=== PATIENT | female | born 1945 | race Two or more races ===

== ENCOUNTER → 2024-07-18 | Outpatient (CLI) | payer OTHER, MEDICAID, SELFPAY ==
[2024-07-18 08:35] LABS: Basophils % (Auto) 1 % (0-2.5); Eosinophils # (Auto) 0.1 Thou/mm3 (0.0-0.5); Eosinophils % (Auto) 3 % (0-10); Hematocrit 37.1 % (36.0-46.0); Hemoglobin 12.1 g/dL (12.0-16.0); Immature Granulocytes % (Auto) 0 % (0-0); Immature Granulocytes Auto 0.01 Thou/mm3 (0.00-0.00); Lymphocytes # (Auto) 1.3 Thou/mm3 (1.0-4.8); Lymphocytes % (Auto) 33 % (10-50); Mean Corpuscular HGB Conc 32.6 g/dl (31.0-37.0); Mean Corpuscular Hemoglobin 32.4 pg (25.0-35.0); Mean Corpuscular Volume 100 fL (80-100); Monocytes # (Auto) 0.3 Thou/mm3 (0.0-0.8); Monocytes % (Auto) 8 % (0-12); Neutrophils # (Auto) 2.2 Thou/mm3 (1.8-7.7); Neutrophils % (Auto) 56 % (37-80); Nucleated Red Blood Cell % 0 /100 WBC (0); Platelet Count 211 Thou/mm3 (140-440); RDW Standard Deviation 52.1 fL (36.4-46.3); Red Blood Count 3.73 Miln/mm3 (4.00-5.20); White Blood Count 3.9 Thou/mm3 (3.6-11.0)
[2024-07-18 09:02] LABS: Alanine Aminotransferase 12 U/L (10-49); Albumin, Serum 4.5 gm/dL (3.4-4.8); Alkaline Phosphatase 45 U/L (46-116); Anion Gap 5 (7-16); Aspartate Amino Transferase < 8 U/L (0-34); BUN/Creatinine Ratio 16 Ratio (12-20); Bilirubin,Direct 0.4 mg/dL (0.0-0.3); Bilirubin,Total 1.2 mg/dL (0.3-1.2); Blood Urea Nitrogen 13 mg/dL (9-23); Calcium 10.9 mg/dL (8.3-10.6); Carbon Dioxide 27.7 mMol/L (20.0-31.0); Cardiac Risk Estimate 2.8 RATIO (3.7-5.6); Chloride 107 mMol/L (98-107); Cholesterol 175 mg/dL (132-200); Creatinine (Component) 0.8 mg/dL (0.6-1.3); Free T4 (Free Thyroxine) 1.12 ng/dL (0.89-1.76); Glucose 130 mg/dL (74-106); HDL Cholesterol 62 mg/dL (40-60); LDL Cholesterol,Calculated 98 mg/dL (0-130); Osmolality,Calculated 281 (275-295); Potassium 4.3 mMol/L (3.4-5.1); Sodium 140 mMol/L (136-145); Thyroid Stimulating Hormone 3.58 uIU/mL (0.55-4.78); Total Protein 7.3 gm/dL (5.7-8.2); Triglycerides 74 mg/dL (30-150); eGFR > 60 See Note
== END | disposition home or self-care (01) ==
PROVIDERS: PCP Internal Medicine; Referring Provider Internal Medicine Cardiovascular Disease; Visit Provider Internal Medicine Cardiovascular Disease
DX: I10 Essential (primary) hypertension (principal); E78.2 Mixed hyperlipidemia; I49.9 Cardiac arrhythmia, unspecified; I20.9 Angina pectoris, unspecified
CPT/HCPCS: 36415; 80048; 80061; 80076; 84439; 84443; 85025

== ENCOUNTER → 2024-08-08 | Outpatient (CLI) | payer OTHER, MEDICAID, SELFPAY ==
[2024-08-08 11:42] LABS: Collection Type, Urine Clean Catch
[2024-08-08 11:58] LABS: Basophils % (Auto) 0 % (0-2.5); Eosinophils # (Auto) 0.1 Thou/mm3 (0.0-0.5); Eosinophils % (Auto) 2 % (0-10); Hematocrit 35.8 % (36.0-46.0); Hemoglobin 11.8 g/dL (12.0-16.0); Immature Granulocytes % (Auto) 0 % (0-0); Immature Granulocytes Auto 0.01 Thou/mm3 (0.00-0.00); Lymphocytes # (Auto) 1.4 Thou/mm3 (1.0-4.8); Lymphocytes % (Auto) 31 % (10-50); Mean Corpuscular Hemoglobin 32.3 pg (25.0-35.0); Mean Corpuscular Volume 98 fL (80-100); Monocytes # (Auto) 0.4 Thou/mm3 (0.0-0.8); Monocytes % (Auto) 8 % (0-12); Neutrophils # (Auto) 2.6 Thou/mm3 (1.8-7.7); Neutrophils % (Auto) 58 % (37-80); Nucleated Red Blood Cell % 0 /100 WBC (0); Platelet Count 196 Thou/mm3 (140-440); RDW Standard Deviation 51.6 fL (36.4-46.3); Red Blood Count 3.65 Miln/mm3 (4.00-5.20); White Blood Count 4.4 Thou/mm3 (3.6-11.0)
[2024-08-08 12:02] LABS: Bilirubin,Urine Negative (Negative); Blood,Urine Negative (Negative); Clarity,Urine Clear (Clear/Hazy); Color,Urine Lt-Yellow (Lt Yel-Yel); Glucose, Urine Negative (Negative); Ketones,Urine Negative (Negative); Leukocyte Esterase,Urine Negative (Negative); Nitrite,Urine Negative (Negative); Protein,Urine Negative (Neg - Trace); RBC,Urine 1 /hpf (0-3); Specific Gravity,Urine 1.014 (1.001-1.035); Squamous Epithelial Cell,Urine 5 /hpf (0-5); Urobilinogen,Urine Negative mg/dL (0.0-1.0); WBC,Urine 5 /hpf (0-5)
[2024-08-08 12:19] LABS: Alanine Aminotransferase 22 U/L (10-49); Albumin, Serum 4.8 gm/dL (3.4-4.8); Albumin/Globulin Ratio 1.7 (1.2-2.2); Alkaline Phosphatase 42 U/L (46-116); Anion Gap 6 (7-16); Aspartate Amino Transferase 26 U/L (0-34); BUN/Creatinine Ratio 19 Ratio (12-20); Blood Urea Nitrogen 15 mg/dL (9-23); Calcium 10.8 mg/dL (8.3-10.6); Calcium (Corrected) 10.8 mg/dL (8.5-10.1); Carbon Dioxide 26.3 mMol/L (20.0-31.0); Chloride 108 mMol/L (98-107); Creatinine (Component) 0.8 mg/dL (0.6-1.3); Globulin 2.9 gm/dL (2.3-3.5); Glucose 113 mg/dL (74-106); Osmolality,Calculated 281 (275-295); Potassium 4.1 mMol/L (3.4-5.1); Sodium 140 mMol/L (136-145); Thyroid Stimulating Hormone 2.68 uIU/mL (0.55-4.78); Total Protein 7.7 gm/dL (5.7-8.2); eGFR > 60 See Note
[2024-08-08 14:35] LABS: Bilirubin,Total 0.9 mg/dL (0.3-1.2); Cholesterol 163 mg/dL (132-200); HDL Cholesterol 54 mg/dL (40-60); LDL Cholesterol,Calculated 90 mg/dL (0-130); Triglycerides 94 mg/dL (30-150)
[2024-08-08 15:28] LABS: Parathyroid Hormone Intact 133.7 pg/ml (18.5-88.0)
[2024-08-08 15:44] LABS: Vitamin D 25 Hydroxy Total 42.1 ng/mL (7.3-40.2)
[2024-08-08 16:05] LABS: Glucose Estimated Average 128 mg/dL (80-131); Hemoglobin A1C 6.1 % Hgb (4.8-6.0)
== END | disposition home or self-care (01) ==
PROVIDERS: PCP Internal Medicine; Referring Provider Internal Medicine; Visit Provider Specialist
DX: E11.9 Type 2 diabetes mellitus without complications (principal); I10 Essential (primary) hypertension; E78.5 Hyperlipidemia, unspecified; E83.52 Hypercalcemia
CPT/HCPCS: 36415; 80053; 80061; 81001; 82306; 83036; 83970; 84443; 85025

== ENCOUNTER → 2024-10-06 | Outpatient (CLI) | payer MEDICARE, MEDICAID, SELFPAY ==
[2024-10-06 08:27] LABS: Anion Gap 6 (7-16); BUN/Creatinine Ratio 16 Ratio (12-20); Blood Urea Nitrogen 13 mg/dL (9-23); Calcium 10.2 mg/dL (8.3-10.6); Carbon Dioxide 28.8 mMol/L (20.0-31.0); Chloride 109 mMol/L (98-107); Creatinine (Component) 0.8 mg/dL (0.6-1.3); Glucose 118 mg/dL (74-106); Osmolality,Calculated 287 (275-295); Potassium 4.4 mMol/L (3.4-5.1); Sodium 144 mMol/L (136-145); eGFR > 60 See Note
[2024-10-06 08:32] LABS: B-Type Natriuretic Peptide 259 pg/mL (0-100)
== END | disposition home or self-care (01) ==
LOC: COPL 07:09
PROVIDERS: PCP Internal Medicine; Referring Provider Internal Medicine Cardiovascular Disease; Visit Provider Internal Medicine Cardiovascular Disease
DX: I11.0 Hypertensive heart disease with heart failure (principal); I50.9 Heart failure, unspecified; E78.2 Mixed hyperlipidemia
CPT/HCPCS: 36415; 80048; 83880

== ENCOUNTER 2024-10-13 06:34 | Day surgery (SDC) | payer OTHER, MEDICAID, SELFPAY ==
--- NOTE | 2024-10-10 13:39 | EKG_ITS ---
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
[2024-10-13] VITALS (9 sets, daily range): BP systolic 123–163; BP diastolic 61–87; PULSE 61–70; RESP 16; O2SAT 95–100; BMI 28.2
[2024-10-13] MEDS: SODIUM CHLORIDE 0.9% 500 ML 500 ML 30 ML IV (07:47)
[2024-10-13] MEDS: fentaNYL CIT INJ 50 mCg/ML AMP 2ML IV (07:55)
[2024-10-13] MEDS: MIDAZOLAM INJ 1 MG/ML VIAL 2 ML 2 MG IV (07:55)
--- NOTE | 2024-10-13 08:01 | EKG_ITS ---
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
--- NOTE | 2024-10-13 09:43 | ESOP_ITS ---
RE: CUATE TURPIN : 1945 DATE OF OPERATION: 10/13/2024 REFERRING PHYSICIAN: Fannie Ross MD PROCEDURE PERFORMED: Electrical cardioversion of atrial fibrillation. INDICATIONS FOR PROCEDURE: The patient with a history of chronic hypertension, recently was noted to be in atrial fibrillation. The patient has been on anticoagulant therapy as well as antiarrhythmic therapy of beta blockers and amiodarone and still continue to persist in atrial fibrillation. The cardiac echo Doppler study showed normal left ventricular systolic function and normal size left atrium. DETAILS OF THE PROCEDURE: After explaining the procedure in detail to the patient and after obtaining a proper consent, the patient was given a total of 2 mg of intravenous Versed and 50 mcg of intravenous fentanyl as premedication. Electrical cardioversion was attempted using anterior-posterior approach and biphasic waveform with 200 joules and the patient did convert back into sinus rhythm at a rate of 60 beats per minute. Post electrical cardioversion electrocardiogram was ordered, which showed sinus rhythm at 60 per minute with incomplete right bundle-branch block pattern and minimal nonspecific ST-T changes. DT: 08:12:10 TT: 09:41:00 Ref: [id number] - TID: [id number]
== END 2024-10-13 09:45 | disposition home or self-care (01) ==
PROVIDERS: PCP Internal Medicine; Referring Provider Internal Medicine Cardiovascular Disease; Visit Provider Internal Medicine Cardiovascular Disease
PROC: 5A2204Z Restoration of Cardiac Rhythm, Single (ICD-10-PCS; CPT 92960; principal; 2024-10-13 07:30)
DX: I48.91 Unspecified atrial fibrillation (principal); I10 Essential (primary) hypertension; E78.5 Hyperlipidemia, unspecified; E13.9 Other specified diabetes mellitus without complications; Z01.810 Encounter for preprocedural cardiovascular examination
CPT/HCPCS: 92960; 80048; 85025; 85610; 85730; 93005; J2250; J3010; J7040

== ENCOUNTER → 2024-12-03 | Outpatient (CLI) | payer MEDICARE, MEDICAID, SELFPAY ==
[2024-12-03 08:08] LABS: Collection Type, Urine Clean Catch
[2024-12-03 08:29] LABS: Basophils % (Auto) 0 % (0-2.5); Eosinophils # (Auto) 0.1 Thou/mm3 (0.0-0.5); Eosinophils % (Auto) 3 % (0-10); Hematocrit 32.9 % (36.0-46.0); Hemoglobin 10.5 g/dL (12.0-16.0); Immature Granulocytes % (Auto) 0 % (0-0); Immature Granulocytes Auto 0.01 Thou/mm3 (0.00-0.00); Lymphocytes # (Auto) 1.3 Thou/mm3 (1.0-4.8); Lymphocytes % (Auto) 33 % (10-50); Mean Corpuscular HGB Conc 31.9 g/dl (31.0-37.0); Mean Corpuscular Hemoglobin 32.1 pg (25.0-35.0); Mean Corpuscular Volume 101 fL (80-100); Monocytes # (Auto) 0.3 Thou/mm3 (0.0-0.8); Monocytes % (Auto) 8 % (0-12); Neutrophils # (Auto) 2.1 Thou/mm3 (1.8-7.7); Neutrophils % (Auto) 55 % (37-80); Nucleated Red Blood Cell % 0 /100 WBC (0); Platelet Count 183 Thou/mm3 (140-440); RDW Standard Deviation 57.1 fL (36.4-46.3); Red Blood Count 3.27 Miln/mm3 (4.00-5.20); White Blood Count 3.8 Thou/mm3 (3.6-11.0)
[2024-12-03 08:32] LABS: Bilirubin,Urine Negative (Negative); Blood,Urine Negative (Negative); Clarity,Urine Clear (Clear/Hazy); Color,Urine Lt-Yellow (Lt Yel-Yel); Glucose, Urine Negative (Negative); Hyaline Casts,Urine < 1 /hpf (0-1); Ketones,Urine Negative (Negative); Leukocyte Esterase,Urine Positive (Negative); Nitrite,Urine Negative (Negative); Protein,Urine Negative (Neg - Trace); RBC,Urine 1 /hpf (0-3); Squamous Epithelial Cell,Urine 2 /hpf (0-5); Urobilinogen,Urine Negative mg/dL (0.0-1.0); WBC,Urine 1 /hpf (0-5)
[2024-12-03 08:38] LABS: Glucose Estimated Average 120 mg/dL (80-131); Hemoglobin A1C 5.8 % Hgb (4.8-6.0)
[2024-12-03 08:39] LABS: Creatinine MALB Rnd Ur 100 mg/dL (30-125); Microalbumin Creat Ratio 6 mg/gCrea (<30); Microalbumin, Random Urine 6 mg/L (0-300)
[2024-12-03 08:57] LABS: Vitamin D 25 Hydroxy Total 35.1 ng/mL (7.3-40.2)
[2024-12-03 09:02] LABS: Parathyroid Hormone Intact 45.6 pg/ml (18.5-88.0)
[2024-12-03 09:05] LABS: Alanine Aminotransferase 12 U/L (10-49); Albumin, Serum 4.5 gm/dL (3.4-4.8); Albumin/Globulin Ratio 1.8 (1.2-2.2); Alkaline Phosphatase 41 U/L (46-116); Anion Gap 6 (7-16); Aspartate Amino Transferase 20 U/L (0-34); BUN/Creatinine Ratio 18 Ratio (12-20); Bilirubin,Total 0.9 mg/dL (0.3-1.2); Blood Urea Nitrogen 18 mg/dL (9-23); Calcium 10.8 mg/dL (8.3-10.6); Calcium (Corrected) 10.8 mg/dL (8.5-10.1); Carbon Dioxide 30.9 mMol/L (20.0-31.0); Cardiac Risk Estimate 2.4 RATIO (3.7-5.6); Chloride 104 mMol/L (98-107); Cholesterol 156 mg/dL (132-200); Globulin 2.5 gm/dL (2.3-3.5); Glucose 106 mg/dL (74-106); HDL Cholesterol 65 mg/dL (40-60); LDL Cholesterol,Calculated 75 mg/dL (0-130); Osmolality,Calculated 283 (275-295); Potassium 4.3 mMol/L (3.4-5.1); Sodium 141 mMol/L (136-145); Thyroid Stimulating Hormone 8.64 uIU/mL (0.55-4.78); Triglycerides 79 mg/dL (30-150); eGFR 58 See Note
== END | disposition home or self-care (01) ==
PROVIDERS: PCP Specialist; Referring Provider Internal Medicine; Visit Provider Internal Medicine
DX: E11.9 Type 2 diabetes mellitus without complications (principal); E78.5 Hyperlipidemia, unspecified; E83.52 Hypercalcemia; I10 Essential (primary) hypertension
CPT/HCPCS: 36415; 80053; 80061; 81001; 82043; 82306; 82570; 83036; 83970; 84443; 85025

== ENCOUNTER → 2024-12-09 | Outpatient (CLI) | payer MEDICARE, MEDICAID, SELFPAY ==
[2024-12-09 13:20] LABS: Vitamin B12 331 pg/mL (211-911)
[2024-12-09 15:56] LABS: Calcium, Random Urine 5 mg/dL (2-18); Creatinine,Random Urine 56 mg/dL (30-125)
[2024-12-09 20:46] LABS: Free T4 (Free Thyroxine) 1.32 ng/dL (0.89-1.76); Thyroid Stimulating Hormone 5.13 uIU/mL (0.55-4.78)
[2024-12-13 13:50] LABS: Albumin 4.5 g/dL (3.8-4.8); Alpha-1-Globulin 0.3 g/dL (0.2-0.3); Alpha-2-Globulin 0.8 g/dL (0.5-0.9); Beta-1-Globulin 0.4 g/dL (0.4-0.6); Beta-2-globulin 0.3 g/dL (0.2-0.5); Gamma Globulin 1.2 g/dL (0.8-1.7)
[2024-12-15 07:04] LABS: Protein, total, serum 7.6 g/dL (6.1-8.1)
== END | disposition home or self-care (01) ==
LOC: COPL 11:59
PROVIDERS: PCP Internal Medicine; Referring Provider Internal Medicine; Visit Provider Internal Medicine
DX: I49.8 Other specified cardiac arrhythmias (principal); E03.9 Hypothyroidism, unspecified; E21.0 Primary hyperparathyroidism
CPT/HCPCS: 36415; 82340; 82570; 82607; 84155; 84165; 84439; 84443

== ENCOUNTER → 2024-12-16 | Outpatient (CLI) | payer MEDICARE, MEDICAID, SELFPAY ==
--- NOTE | 2024-12-16 11:45 | XR_ITS ---
Examination: Thyroid sonography complete TECHNIQUE: Grayscale sonographic images thyroid lobes Exam date and time: December 17, 2019 5:11 AM INDICATIONS: Thyromegaly on clinical examination by provider this month. FINDINGS: Right thyroid 4.0 cm Upper pole nodule 11 x 12 mm Midpole nodule 8 x 7 mm Left thyroid 4.0 cm Upper pole nodule 7 x 5 mm Midpole cyst 8 x 7 mm Multiple smaller nodules IMPRESSION: Solid thyroid nodules as above
== END | disposition home or self-care (01) ==
LOC: CDIM 10:41
PROVIDERS: PCP Internal Medicine; Referring Provider Internal Medicine; Visit Provider Internal Medicine
DX: E04.2 Nontoxic multinodular goiter (principal)
CPT/HCPCS: 76536

== ENCOUNTER 2024-12-29 11:19 | Emergency (ER) | payer OTHER, SELFPAY ==
[2024-12-29 11:20] VITALS: BMI 27.3
[2024-12-29 11:35] VITALS: BP 156/79; PULSE 64; RESP 18; TEMP 36.6; O2SAT 99
--- NOTE | 2024-12-29 12:01 | EKG_ITS ---
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: : 1945 Requested By: Bladimir Johnson Order Number: [id number] Reading MD: Bladimir Johnson Measurements Intervals [place] Rate: 67 P: -69 GA: 199 QRS: -23 QRSD: 113 T: 20 QT: 359 QTc: 379 Interpretive Statements SINUS RHYTHM BORDERLINE LEFT AXIS DEVIATION [QRS AXIS < -20] MODERATE INTRAVENTRICULAR CONDUCTION DELAY [110+ ms QRS DURATION] NONSPECIFIC T-WAVE ABNORMALITY Compared to ECG 10/13/2024 08:04:53 Intraventricular conduction delay now present Sinus arrhythmia no longer present Incomplete right bundle-branch block no longer present T-wave abnormality still present /store/S0/[id number]/ecg/[id number].pdf
--- NOTE | 2024-12-29 12:02 | PD.EDRME ---
Rapid Medical Screening Exam [facility] Arrival date/time: 12/29/24 11:19 79-year-old female with a history of hypertension, hyperlipidemia, type 2 diabetes presents to the emergency room with a chief complaint of generalized fatigue and weakness, near syncopal episodes, x 1 week. I have greeted and performed a focused initial assessment of this patient. A comprehensive ED assessment and evaluation of the patient, analysis of all test results, and completion of the medical decision making process will be conducted by additional ED providers. Chief Complaint: Weakness Vital signs: Vital Signs Temperature 98 F 12/29/24 11:35 Pulse Rate 64 12/29/24 11:35 Respiratory Rate 18 12/29/24 11:35 Blood Pressure 156/79 H 12/29/24 11:35 Pulse Oximetry (%) 99 12/29/24 11:35 Oxygen Delivery Method Room Air 12/29/24 11:35 Vital signs reviewed by provider: Yes
[2024-12-29 12:47] LABS: Basophils % (Auto) 1 % (0-2.5); Eosinophils # (Auto) 0.1 Thou/mm3 (0.0-0.5); Eosinophils % (Auto) 2 % (0-10); Hematocrit 40.5 % (36.0-46.0); Hemoglobin 13.3 g/dL (12.0-16.0); Immature Granulocytes % (Auto) 0 % (0-0); Immature Granulocytes Auto 0.01 Thou/mm3 (0.00-0.00); Lymphocytes # (Auto) 1.4 Thou/mm3 (1.0-4.8); Lymphocytes % (Auto) 33 % (10-50); Mean Corpuscular HGB Conc 32.8 g/dl (31.0-37.0); Mean Corpuscular Hemoglobin 32.4 pg (25.0-35.0); Mean Corpuscular Volume 99 fL (80-100); Monocytes # (Auto) 0.3 Thou/mm3 (0.0-0.8); Monocytes % (Auto) 8 % (0-12); Neutrophils # (Auto) 2.4 Thou/mm3 (1.8-7.7); Neutrophils % (Auto) 56 % (37-80); Nucleated Red Blood Cell % 0 /100 WBC (0); Platelet Count 207 Thou/mm3 (140-440); RDW Standard Deviation 53.8 fL (36.4-46.3); White Blood Count 4.3 Thou/mm3 (3.6-11.0)
[2024-12-29 12:50] LABS: Alanine Aminotransferase 21 U/L (10-49); Albumin/Globulin Ratio 1.5 (1.2-2.2); Alkaline Phosphatase 51 U/L (46-116); Anion Gap 7 (7-16); Aspartate Amino Transferase 34 U/L (0-34); BUN/Creatinine Ratio 16 Ratio (12-20); Bilirubin,Total 1.1 mg/dL (0.3-1.2); Blood Urea Nitrogen 16 mg/dL (9-23); Calcium 10.4 mg/dL (8.3-10.6); Calcium (Corrected) 10.4 mg/dL (8.5-10.1); Carbon Dioxide 28.2 mMol/L (20.0-31.0); Chloride 106 mMol/L (98-107); Globulin 3.3 gm/dL (2.3-3.5); Glucose 123 mg/dL (74-106); Magnesium 2.8 mg/dL (1.6-2.6); Osmolality,Calculated 283 (275-295); Potassium 4.4 mMol/L (3.4-5.1); Sodium 141 mMol/L (136-145); Total Protein 8.3 gm/dL (5.7-8.2); Troponin I < 0.020 ng/mL (0.0-0.045); eGFR 57 See Note
[2024-12-29 12:55] LABS: INR 1.1 (0.9-1.3); Prothrombin Time 11.7 Seconds (9.0-12.2)
[2024-12-29 13:20] LABS: B-Type Natriuretic Peptide 111 pg/mL (0-100)
[2024-12-29 15:25] LABS: Collection Type, Urine Clean Catch
[2024-12-29 15:34] LABS: Bilirubin,Urine Negative (Negative); Blood,Urine Negative (Negative); Clarity,Urine Clear (Clear/Hazy); Color,Urine Lt-Yellow (Lt Yel-Yel); Glucose, Urine Negative (Negative); Ketones,Urine Negative (Negative); Leukocyte Esterase,Urine Negative (Negative); Nitrite,Urine Negative (Negative); Protein,Urine Negative (Neg - Trace); RBC,Urine 2 /hpf (0-3); Specific Gravity,Urine 1.015 (1.001-1.035); Squamous Epithelial Cell,Urine 2 /hpf (0-5); Urobilinogen,Urine Negative mg/dL (0.0-1.0); WBC,Urine 2 /hpf (0-5)
[2024-12-29 15:44] VITALS: BP 190/77; PULSE 67; RESP 18; TEMP 36.8; O2SAT 99
--- NOTE | 2024-12-29 16:46 | XR_ITS ---
Examination: CT brain head without contrast. 2-D sagittal coronal reconstructions Date and time of exam:December 29, 2024 1737 hrs. Comparison February 18, 2024 Indications: Onset headache and weakness beginning one week ago CTDI: vol (mGy):46 DLP: (mGycm):873 Technique: Multiple CT axial sections of the brain have been obtained, 5 mm slice thickness. Contrast has not been administered. 2-D sagittal, coronal reconstructions have been obtained Low dose protocols were performed. One or more of the following dose reduction techniques were used; automated exposure control, adjustment of the mA and/or KV according to patient size, use of iterative reconstruction technique. Findings: No significant ventricular enlargement. Intra-axial or extra-axial hemorrhage density is not seen. No mass effect or midline shift Basal cisterns are not remarkable. Fourth ventricle is midline. Cranial vault intact. Impression: Negative for acute hemorrhage, mass effect or midline shift Advise clinical correlation follow-up accordingly
--- NOTE | 2024-12-29 16:48 | PD.EDADULT ---
ED General RME/HPI General Chief complaint: Weakness Stated complaint: SENT BY PCP FOR WEAKNESS X1 WEEK Time Seen by Provider: 12/29/24 16:36 Arrival date/time: 12/29/24 11:19 CC: Generalized weakness fatigue HPI ongoing for 1 week. The family member at bedside states the patient has had adjustment in her blood pressure medications from Dr. Ross. But also mentions that she gets blood pressure medications from Dr. Figueroa as well. Currently the patient denies any chest pain shortness of breath or difficulty breathing. RME / HPI RME / HPI narrative: 12/29/24 11:19 79-year-old female with a history of hypertension, hyperlipidemia, type 2 diabetes presents to the emergency room with a chief complaint of generalized fatigue and weakness, near syncopal episodes, x 1 week. I have greeted and performed a focused initial assessment of this patient. A comprehensive ED assessment and evaluation of the patient, analysis of all test results, and completion of the medical decision making process will be conducted by additional ED providers. Related Data Home Medications ?Medication ?Instructions ?Recorded ?Confirmed atenolol 25 mg tablet 25 mg PO BID ##60 03/13/16 11/27/22 atorvastatin 20 mg tablet 20 mg PO QDAY 11/27/22 11/27/22 losartan 50 mg tablet 100 mg PO DAILY 11/27/22 11/27/22 metformin 500 mg tablet 500 mg PO DAILY 11/27/22 11/27/22 Previous Rx's ?Medication ?Instructions ?Recorded pantoprazole 40 mg tablet,delayed 40 mg PO QDAY #90 tabs 11/27/22 release (Protonix) Allergies Allergy/AdvReac Type Severity Reaction Status Date / Time No Known Allergies Allergy Verified 12/29/24 11:20 Review of Systems Review of Systems Narrative Review of Systems: GEN: No fever, no chills, no weight loss EYES: No discharge, no visual changes, no pain HEENT: No ear pain, no congestion, no sore throat PULM: No shortness of breath, no cough, no congestion CV: No chest pain, no dyspnea on exertion, no palpitations GI: No nausea, no vomiting, no diarrhea, no pain, no constipation : No frequency, no urgency, no dysuria MUSC/SKEL: No joint pain, no back pain SKIN: No rash PSYCH: No hallucinations, no depression HEME/LYMPH: No easy bleeding or bruising tendencies NEURO: No weakness, no headache Past Medical History Past Medical History NEUROLOGIC: Negative Neurological Disorders or Seizures CARDIAC: Positive Cardiac Disorders, Hypercholesterolemia, Edema and Hypertension; Negative Angina or Congestive Heart Failure RESPIRATORY: Negative Chronic Obstructive Pulmonary Disease (COPD), Asthma or Sleep Apnea GASTROINTESTINAL: Positive Gastrointestinal Disorders GENITOURINARY: Negative Genitourinary Disorders, Renal Disease or Kidney Stones REPRODUCTIVE: Negative Pelvic Inflammatory Disease MUSCULOSKELETAL: Positive Musculoskeletal Disorders; Negative Arthritis ENT: Positive Cataracts ENDOCRINE: Positive Endocrine Disorders and Diabetes Mellitus Type 2; Negative Diabetes Mellitus Type 1 HEMATOLOGIC: Negative Blood Disorders PSYCHO/SOCIAL: Negative Depression or Anxiety OTHER HISTORY: Positive Blood Transfusions; Negative Autoimmune Disease, Falls, Blood Transfusion Reaction, Anesthesia Reactions, Organ Transplant, Clostridium Difficile or Cancer Family History FAMILY HISTORY: Negative Family Cardiac Disorders Surgical History SURGICAL: Negative Cardiac Surgery, Endocrine Surgery, Ear Surgery, Abdominal Surgery, Nephrectomy, Joint Replacement, Neurologic Surgery, Mastectomy, Vasectomy or Organ Transplant Social History SMOKING STATUS: Never smoker ED Exam Narrative Physical exam: [General: Fatigued, but not in any acute distress Head normocephalic HEENT: Within acceptable limits Neck is supple nontender Chest equal chest rise nontender to palpation Respiratory: Clear to auscultation no wheezes crackles or rubs CV: Rate rhythm is regular no murmurs rubs or clicks Abdomen is distended secondary to body habitus soft nontender no masses positive bowel sounds all 4 quadrants Back: No CVA tenderness no spinous process tenderness from cervical spine thoracic and lumbar spine Skin: Intact no petechiae rash induration ulceration or crepitus Extremities: Moving all extremity against resistance cap refill less than 2 seconds neurosensory intact. No lower extremity edema Neuro: Awake alert oriented x3 Glascow coma 15 no focal deficits] Course Quality Measures none Orders Category Date Time Status EKG (ED ONLY) *Do not use* NOW Care 12/29/24 12:[address] head/brain wo con Stat Exams 12/29/24 16:46 Completed EKG (ED Only) Stat Exams 12/29/24 12:01 Draft B-Type Natriuretic Peptide Stat Lab 12/29/24 12:16 Completed CBC Stat Lab 12/29/24 12:16 Completed Comprehensive Metabolic Panel Stat Lab 12/29/24 12:16 Completed Magnesium Stat Lab 12/29/24 12:16 Completed Partial Thromboplastin Time Stat Lab 12/29/24 12:16 Completed Prothrombin Time with INR Stat Lab 12/29/24 12:16 Completed Troponin I Stat Lab 12/29/24 12:16 Completed Urinalysis Stat Lab 12/29/24 15:17 Completed Vital Signs Vital signs: Vital Signs Temperature 98 F 12/29/24 11:35 Pulse Rate 64 12/29/24 11:35 Respiratory Rate 18 12/29/24 11:35 Blood Pressure 156/79 H 12/29/24 11:35 Pulse Oximetry (%) 99 12/29/24 11:35 Oxygen Delivery Method Room Air 12/29/24 11:35 MDM Patient data External records reviewed:: [facility] previous records Clinical information provided by:: patient and family Social determinants that could affect healthcare access:: none Patient has the following chronic illnesses:: Hypertension How is presenting disease/condition affected by chronic disease/condition?: exacerbated by Evaluation data The following diagnostics were reviewed and interpreted by me:: lab results, radiology exam(s) and EKG tracing(s) Lab and/or radiology exams considered but not ordered:: CBC shows no acute leukocytosis anemia thrombocytopenia CMP shows no electrolyte imbalances renal impairment transaminitis or T. bili elevation please note mag is at 2.8. Troponin is negative BNP is 111. Urine is negative for proteinuria or suggestive of UTI. EKG performed at 1206 shows a ventricular rate 6 7 [place] interval 199 QRS of 113 QTc of 374 this is sinus rhythm left axis deviation. Interpretation Summary: I suspect this is a polypharmacy issue, discussed with Dr. Ross, once the patient's head scanned if is negative she can send her home. I discussed with the family member there needs to be coordination between Dr. Figueroa cardiology, Dr. Ross, on the hypertension medications. Medications Medications considered but not ordered:: None Medication administrations:: None Consultations Consultation(s) initiated? (list below): No Diagnosis Differential Diagnosis ED Complaint MDM: Hypertension CVA anemia Most likely diagnosis given after review of the tests above:: Weakness Admission Indicated Admission indicated?: not indicated Explain why admission is indicated or not indicated:: Stable for outpatient follow-up Admission Request Was there a request for admission?: No Disposition Plan Disposition Plan: Discharge Discharge Attestation Discharge Attestation: The patient and all family members were given an opportunity to ask questions and understood the discharge instructions. Discharge instructions specifically effects, indications for sooner follow up or return to the emergency department, and the expected course of current diagnosis. Patient condition: Stable Medical Decision Making Differential Diagnosis Differential Diagnosis: Hypertension CVA anemia Lab Data 12/29/24 12:16 12/29/24 12:16 Labs: Lab Results 12/29/24 12/29/24 Range/Units 12:16 15:17 WBC 4.3 (3.6-11.0) Thou/mm3 RBC 4.10 (4.00-5.20) Miln/mm3 Hgb 13.3 (12.0-16.0) g/dL Hct 40.5 (36.0-46.0) % MCV 99 (80-100) fL MCH 32.4 (25.0-35.0) pg MCHC 32.8 (31.0-37.0) g/dl RDW Std Deviation 53.8 H (36.4-46.3) fL Plt Count 207 (140-440) Thou/mm3 Neut % (Auto) 56 (37-80) % Lymph % (Auto) 33 (10-50) % [place] % (Auto) 8 (0-12) % Eos % (Auto) 2 (0-10) % Baso % (Auto) 1 (0-2.5) % Neut # (Auto) 2.4 (1.8-7.7) Thou/mm3 Lymph # (Auto) 1.4 (1.0-4.8) Thou/mm3 [place] # (Auto) 0.3 (0.0-0.8) Thou/mm3 Eos # (Auto) 0.1 (0.0-0.5) Thou/mm3 Baso # (Auto) 0.0 (0.0-0.2) Thou/mm3 Immature Gran # (Auto) 0.01 H (0.00-0.00) Thou/mm3 Absolute Nucleated RBC 0.00 (0.00-0.00) Thou/mm3 Immature Gran % 0 (0-0) % Nucleated RBC % 0 (0) /100 WBC PT 11.7 (9.0-12.2) Seconds INR 1.1 (0.9-1.3) APTT 31.0 (22.0-36.0) Seconds Sodium 141 (136-145) mMol/L Potassium 4.4 (3.4-5.1) mMol/L Chloride 106 (98-107) mMol/L Carbon Dioxide 28.2 (20.0-31.0) mMol/L Anion Gap 7 (7-16) BUN 16 (9-23) mg/dL Creatinine 1.0 (0.6-1.3) mg/dL Estim Creat Clear Calc 38.0 L (>60) mL/min eGFR 57 L (60 - ) See Note BUN/Creatinine Ratio 16 (12-20) Ratio Glucose 123 H (74-106) mg/dL Calculated Osmolality 283 (275-295) Calcium 10.4 (8.3-10.6) mg/dL Corrected Calcium 10.4 H (8.5-10.1) mg/dL Magnesium 2.8 H (1.6-2.6) mg/dL Total Bilirubin 1.1 (0.3-1.2) mg/dL AST 34 (0-34) U/L ALT 21 (10-49) U/L Alkaline Phosphatase 51 (46-116) U/L Troponin I < 0.020 (0.0-0.045) ng/mL B-Natriuretic Peptide 111 H (0-100) pg/mL Total Protein 8.3 H (5.7-8.2) gm/dL Albumin 5.0 H (3.4-4.8) gm/dL Globulin 3.3 (2.3-3.5) gm/dL Albumin/Globulin Ratio 1.5 (1.2-2.2) Ur Collection Type Clean Catch Urine Color Lt-Yellow (Lt Yel-Yel) Urine Clarity Clear (Clear/Hazy) Urine pH 7.0 (5.0-7.0) Ur Specific [place] 1.015 (1.001-1.035) Urine Protein Negative (Neg - Trace) Urine Glucose (UA) Negative (Negative) Urine Ketones Negative (Negative) Urine Blood Negative (Negative) Urine Nitrite Negative (Negative) Urine Bilirubin Negative (Negative) Urine Urobilinogen (Auto) Negative (0.0-1.0) mg/dL Ur Leukocyte Esterase Negative (Negative) Urine RBC 2 (0-3) /hpf Urine WBC 2 (0-5) /hpf Ur Squamous Epith Cells 2 (0-5) /hpf Urine Bacteria None (None) Discharge Plan Plan Patient Disposition: HOME (Self Care) Patient condition on transfer: Stable Prescriptions/Referrals Prescriptions/Med Rec: No Action atenolol 25 MG tablet 25 mg PO BID Qty: 60 losartan 50 mg tablet 100 mg PO DAILY Patient Comments: take 2 tabs by mouth once a day as directed atorvastatin 20 mg tablet 20 mg PO QDAY Patient Comments: TAKE 1 TABLET BY MOUTH AT BEDTIME metformin 500 mg tablet 500 mg PO DAILY Patient Comments: TAKE 1 TABLET BY MOUTH DAILY pantoprazole [Protonix] 40 mg Tablet,Delayed Release (Dr/Ec) 40 mg PO QDAY Qty: 90 0RF Rx Instructions: take 1 tablet by mouth daily for 3 months Referrals: Spencer Luna MD [Physician] - In 1 week Fannie Ross MD [Primary Care Provider] - In 1 week Problem List Clinical Impression: Weakness Patient/Caregiver Discharge Instructions Other Activity Instructions:: CT of your head is negative all of your blood work is unremarkable. Follow-up with Dr. Figueroa to get your hypertension medications sorted out. Also follow-up with Dr. Ross. If there is worsening of symptoms return the emergency room for reevaluation. Education Materials: ED Weakness (Uncertain Cause) Print Language: Mongolian Stand Alone Forms: Kim Award Info., Work/School Release, Patient Portal Info Letter PA/PORTABLE TRACK CREW CHIEF Supervising Physician PA/PORTABLE TRACK CREW CHIEF Supervising Physician: Danis Michaud ENP
[2024-12-29 18:19] VITALS: BP 185/75; PULSE 96; O2SAT 100
== END 2024-12-29 18:25 | disposition home or self-care (01) ==
PROVIDERS: Nurse Practitioner Family; Emergency Provider Emergency Medicine; PCP Internal Medicine
DX: R53.1 Weakness (principal); E11.9 Type 2 diabetes mellitus without complications; E78.5 Hyperlipidemia, unspecified
CPT/HCPCS: 36415; 70450; 80053; 81001; 83735; 83880; 84484; 85025; 85610; 85730; 93005; 99284

== ENCOUNTER → 2025-01-01 | Outpatient (CLI) | payer MEDICARE, MEDICAID, SELFPAY ==
[2025-01-01 08:59] LABS: Misc Send Out* See Sep Rpt
[2025-01-01 09:53] LABS: Collection Type, Urine Clean Catch
[2025-01-01 09:58] LABS: B-Type Natriuretic Peptide 158 pg/mL (0-100)
[2025-01-01 10:17] LABS: Bilirubin,Urine Negative (Negative); Blood,Urine Negative (Negative); Clarity,Urine Clear (Clear/Hazy); Color,Urine Yellow (Lt Yel-Yel); Glucose, Urine Negative (Negative); Hyaline Casts,Urine < 1 /hpf (0-1); Ketones,Urine Negative (Negative); Leukocyte Esterase,Urine Negative (Negative); Nitrite,Urine Negative (Negative); Protein,Urine Trace (Neg - Trace); RBC,Urine 5 /hpf (0-3); Squamous Epithelial Cell,Urine 5 /hpf (0-5); Urobilinogen,Urine Negative mg/dL (0.0-1.0); WBC,Urine 2 /hpf (0-5)
[2025-01-01 10:27] LABS: Albumin, Serum 4.8 gm/dL (3.4-4.8); Anion Gap 7 (7-16); BUN/Creatinine Ratio 16 Ratio (12-20); Blood Urea Nitrogen 16 mg/dL (9-23); Calcium 10.4 mg/dL (8.3-10.6); Calcium (Corrected) 10.4 mg/dL (8.5-10.1); Carbon Dioxide 30.4 mMol/L (20.0-31.0); Chloride 105 mMol/L (98-107); Glucose 128 mg/dL (74-106); Osmolality,Calculated 286 (275-295); Phosphorous 3.2 mg/dL (2.4-5.1); Sodium 142 mMol/L (136-145); eGFR 57 See Note
[2025-01-05 08:19] LABS: Renin Activity, Plasma* 0.14 ng/mL/h (0.25-5.82)
[2025-01-07 06:26] LABS: Aldosterone* 12 ng/dL
== END | disposition home or self-care (01) ==
PROVIDERS: PCP Internal Medicine; Referring Provider Internal Medicine; Visit Provider Internal Medicine Cardiovascular Disease
DX: I11.0 Hypertensive heart disease with heart failure (principal); I50.9 Heart failure, unspecified; E78.5 Hyperlipidemia, unspecified
CPT/HCPCS: 36415; 80048; 80069; 81001; 82088; 83880; 84244

== ENCOUNTER → 2025-01-09 | Outpatient (CLI) | payer MEDICARE, MEDICAID, SELFPAY ==
--- NOTE | 2025-01-09 09:30 | XR_ITS ---
Examination: Retroperitoneal ultrasound, complete Technique: Multiple high resolution grayscale images of the retroperitoneum obtained, including kidneys and bladder. Exam date and time:January 09, 2025 0915 hours INDICATIONS: Uncontrolled blood pressure noted beginning 15 years ago FINDINGS: Right kidney 9.9 cm cortex 1.7 cm Midpole cyst 24 mm Left kidney 10.2 cm renal cortex 2.4 cm Mild left hydronephrosis Moderate bilateral renal parenchymal scar formation Bladder contracted IMPRESSION: Moderate bilateral renal parenchymal scar formation Mild left hydronephrosis
--- NOTE | 2025-01-09 10:00 | XR_ITS ---
Examination: Renal sonography Renal Doppler sonographic assessment including peak systolic velocities and renal aortic ratios Exam date and time: January 09, 2025 0915 hours INDICATIONS: Uncontrolled high blood pressure noticed beginning 15 years ago. FINDINGS: Right kidney 9.8 cm renal cortex 1.8 cm No elevation of peak systolic velocities No significant elevation resistive indices. Normal renal aortic ratio Left kidney 10.3 cm cortex 2.5 cm No elevation peak systolic velocities No significant elevation resistive indices Normal renal aortic ratio IMPRESSION: No sonographic findings of renal artery stenosis
== END | disposition home or self-care (01) ==
PROVIDERS: PCP Internal Medicine; Referring Provider Internal Medicine; Visit Provider Internal Medicine
DX: N28.89 Other specified disorders of kidney and ureter (principal); N13.30 Unspecified hydronephrosis
CPT/HCPCS: 76770; 93975

== ENCOUNTER → 2025-02-24 | Outpatient (CLI) | payer MEDICARE, MEDICAID, SELFPAY ==
[2025-02-24 09:33] LABS: Parathyroid Hormone Intact 91.5 pg/ml (18.5-88.0)
[2025-02-24 09:35] LABS: Albumin, Serum 4.3 gm/dL (3.4-4.8); Anion Gap 9 (7-16); BUN/Creatinine Ratio 21 Ratio (12-20); Blood Urea Nitrogen 21 mg/dL (9-23); Calcium 10.1 mg/dL (8.3-10.6); Calcium (Corrected) 10.1 mg/dL (8.5-10.1); Carbon Dioxide 29.2 mMol/L (20.0-31.0); Chloride 106 mMol/L (98-107); Glucose 125 mg/dL (74-106); Osmolality,Calculated 290 (275-295); Phosphorous 3.2 mg/dL (2.4-5.1); Sodium 144 mMol/L (136-145); eGFR 57 See Note
== END | disposition home or self-care (01) ==
LOC: COPL 08:42
PROVIDERS: PCP Internal Medicine; Referring Provider Internal Medicine; Visit Provider Internal Medicine
DX: N17.9 Acute kidney failure, unspecified (principal)
CPT/HCPCS: 36415; 80069; 83970

== ENCOUNTER → 2025-04-14 | Outpatient (CLI) | payer MEDICARE, MEDICAID, SELFPAY ==
[2025-04-14 08:59] LABS: Collection Type, Urine Clean Catch
[2025-04-14 09:39] LABS: Basophils # (Auto) 0.0 Thou/mm3 (0.0-0.2); Basophils % (Auto) 1 % (0-2.5); Eosinophils # (Auto) 0.1 Thou/mm3 (0.0-0.5); Eosinophils % (Auto) 3 % (0-10); Hematocrit 40.4 % (36.0-46.0); Hemoglobin 12.9 g/dL (12.0-16.0); Immature Granulocytes Auto 0.01 Thou/mm3 (0.00-0.00); Lymphocytes # (Auto) 1.5 Thou/mm3 (1.0-4.8); Lymphocytes % (Auto) 37 % (10-50); Mean Corpuscular HGB Conc 31.9 g/dl (31.0-37.0); Mean Corpuscular Hemoglobin 34.1 pg (25.0-35.0); Mean Corpuscular Volume 107 fL (80-100); Monocytes # (Auto) 0.3 Thou/mm3 (0.0-0.8); Monocytes % (Auto) 7 % (0-12); Neutrophils # (Auto) 2.2 Thou/mm3 (1.8-7.7); Neutrophils % (Auto) 52 % (37-80); Nucleated Red Blood Cell # 0.00 Thou/mm3 (0.00-0.00); Nucleated Red Blood Cell % 0 /100 WBC (0); Platelet Count 219 Thou/mm3 (140-440); RDW Standard Deviation 54.6 fL (36.4-46.3); Red Blood Count 3.78 Miln/mm3 (4.00-5.20); White Blood Count 4.2 Thou/mm3 (3.6-11.0)
[2025-04-14 09:43] LABS: Bilirubin,Urine Negative (Negative); Blood,Urine Negative (Negative); Clarity,Urine Clear (Clear/Hazy); Color,Urine Lt-Yellow (Lt Yel-Yel); Glucose, Urine Negative (Negative); Ketones,Urine Negative (Negative); Leukocyte Esterase,Urine Positive (Negative); Nitrite,Urine Negative (Negative); PH,Urine 6.0 (5.0-7.0); Protein,Urine Negative (Neg - Trace); RBC,Urine 3 /hpf (0-3); Specific Gravity,Urine 1.025 (1.001-1.035); Squamous Epithelial Cell,Urine 4 /hpf (0-5); Urobilinogen,Urine Negative mg/dL (0.0-1.0); WBC,Urine 2 /hpf (0-5)
[2025-04-14 09:47] LABS: Glucose Estimated Average 134 mg/dL (80-131); Hemoglobin A1C 6.3 % Hgb (4.8-6.0)
[2025-04-14 09:53] LABS: Creatinine MALB Rnd Ur 127 mg/dL (30-125); Microalbumin Creat Ratio 2 mg/gCrea (<30); Microalbumin, Random Urine 3 mg/L (0-300)
[2025-04-14 10:03] LABS: Alanine Aminotransferase 21 U/L (10-49); Albumin, Serum 4.4 gm/dL (3.4-4.8); Albumin/Globulin Ratio 1.8 (1.2-2.2); Alkaline Phosphatase 45 U/L (46-116); Anion Gap 9 (7-16); Aspartate Amino Transferase 40 U/L (0-34); BUN/Creatinine Ratio 19 Ratio (12-20); Bilirubin,Total 0.9 mg/dL (0.3-1.2); Blood Urea Nitrogen 21 mg/dL (9-23); Calcium 10.3 mg/dL (8.3-10.6); Calcium (Corrected) 10.3 mg/dL (8.5-10.1); Carbon Dioxide 29.7 mMol/L (20.0-31.0); Cardiac Risk Estimate 3.7 RATIO (3.7-5.6); Chloride 106 mMol/L (98-107); Cholesterol 221 mg/dL (132-200); Creatinine (Component) 1.1 mg/dL (0.6-1.3); Globulin 2.5 gm/dL (2.3-3.5); Glucose 122 mg/dL (74-106); HDL Cholesterol 59 mg/dL (40-60); LDL Cholesterol,Calculated 131 mg/dL (0-130); Osmolality,Calculated 292 (275-295); Potassium 4.4 mMol/L (3.4-5.1); Sodium 145 mMol/L (136-145); Thyroid Stimulating Hormone 3.77 uIU/mL (0.55-4.78); Total Protein 6.9 gm/dL (5.7-8.2); Triglycerides 154 mg/dL (30-150); eGFR 51 See Note
== END | disposition home or self-care (01) ==
LOC: COPL 08:15
PROVIDERS: PCP Internal Medicine; Referring Provider Internal Medicine; Visit Provider Internal Medicine
DX: E11.9 Type 2 diabetes mellitus without complications (principal); I10 Essential (primary) hypertension; E78.5 Hyperlipidemia, unspecified; N17.9 Acute kidney failure, unspecified
CPT/HCPCS: 36415; 80053; 80061; 81001; 82043; 82570; 83036; 84443; 85025

== ENCOUNTER 2025-05-13 14:34 | Emergency (ER) | payer MEDICARE, MEDICAID, SELFPAY ==
[2025-05-13 14:47] VITALS: BP 146/87; PULSE 79; RESP 18; TEMP 36.8; O2SAT 97
--- NOTE | 2025-05-13 14:54 | XR_ITS ---
Exam: Chest 1 view, AP Date and time of exam: 05/13/2025, 2:55 PM INDICATION: Shortness of breath Comparison: 08/11/2023 Findings: Borderline cardiomegaly. No mediastinal adenopathy. No acute fracture No pulmonary edema or pneumonia. Stable spinal hardware. Impression: No active disease.
--- NOTE | 2025-05-13 14:54 | EKG_ITS ---
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
--- NOTE | 2025-05-13 14:54 | EDNOTE_ITS ---
ED General RME/HPI General Chief complaint: Weakness Stated complaint: WEAK, DIZZY, POOR APPETITE X 2 DAYS Time Seen by Provider: 05/13/25 14:53 Arrival date/time: 05/13/25 14:34 CC: Dizziness lightheadedness HPI ongoing for the past week denies any chest pain loss of consciousness altered level of consciousness or falls. No recent change in her daily medications seen by Dr. Lamb as her PCP. Related Data Home Medications ?Medication ?Instructions ?Recorded ?Confirmed atenolol 25 mg tablet 25 mg PO BID ##60 03/13/16 0 11/27/22 atorvastatin 20 mg tablet 20 mg PO QDAY 11/27/2211/27 losartan 50 mg tablet 100 mg PO DAILY 11/27/22 metformin 500 mg tablet 500 mg PO DAILY 11/27/22 Previous Rx's ?Medication ?Instructions ?Recorded pantoprazole 40 mg tablet,delayed 40 mg PO QDAY #90 ta bs 11/27/22 release (Protonix) Allergies Allergy/AdvReac Type Severity Reaction Status Date / Time No Known Allergies Allergy Verified 05/13/25 14:36 Review of Systems Review of Systems Narrative Review of Systems: GEN: No fever, no chills, no weight loss EYES: No discharge, no visual changes, no pain HEENT: No ear pain, no congestion, no sore throat PULM: No shortness of breath, no cough, no congestion CV: No chest pain, no dyspnea on exertion, no palpitations GI: No nausea, no vomiting, no diarrhea, no pain, no constipation : No frequency, no urgency, no dysuria MUSC/SKEL: No joint pain, no back pain SKIN: No rash PSYCH: No hallucinations, no depression HEME/LYMPH: No easy bleeding or bruising tendencies NEURO: + weakness, + dizziness , + lightheadedness, no headache Past Medical History Past Medical History NEUROLOGIC: Negative Neurological Disorders or Seizures CARDIAC: Positive Cardiac Disorders, Hypercholesterolemia, Edema and Hypertension; Negative Angina or Congestive Heart Failure RESPIRATORY: Negative Chronic Obstructive Pulmonary Disease (COPD), Asthma or Sleep Apnea GASTROINTESTINAL: Positive Gastrointestinal Disorders GENITOURINARY: Negative Genitourinary Disorders, Renal Disease or Kidney Stones REPRODUCTIVE: Negative Pelvic Inflammatory Disease MUSCULOSKELETAL: Positive Musculoskeletal Disorders; Negative Arthritis ENT: Positive Cataracts ENDOCRINE: Positive Endocrine Disorders and Diabetes Mellitus Type 2; Negative Diabetes Mellitus Type 1 HEMATOLOGIC: Negative Blood Disorders PSYCHO/SOCIAL: Negative Depression or Anxiety OTHER HISTORY: Positive Blood Transfusions; Negative Autoimmune Disease, Falls, Blood Transfusion Reaction, Anesthesia Reactions, Organ Transplant, Clostridium Difficile or Cancer Family History FAMILY HISTORY: Negative Family Cardiac Disorders Surgical History SURGICAL: Negative Cardiac Surgery, Endocrine Surgery, Ear Surgery, Abdominal Surgery, Nephrectomy, Joint Replacement, Neurologic Surgery, Mastectomy, Vasectomy or Organ Transplant Social History SMOKING STATUS: Never smoker ED Exam Narrative Physical exam: [General: Not in any acute distress Head normocephalic HEENT: Eyes: Pupils are PERRLA EOMs are intact mouth pink moist membranes uvula is midline swallow symmetrical phonation is normal. All other subsystems of HEENT are within acceptable limits Neck is supple nontender no JVD no edema full range of motion Chest equal chest rise nontender to palpation Respiratory: Clear to auscultation no wheezes crackles or rubs CV: Rate rhythm is regular no murmurs rubs or clicks Abdomen is soft nontender no masses positive bowel sounds all 4 quadrants Back: No CVA tenderness no spinous process tenderness from cervical spine thoracic and lumbar spine Skin: Intact no petechiae rash induration ulceration or crepitus Extremities: Moving all extremity against resistance cap refill less than 2 seconds neurosensory intact Neuro: Awake alert oriented x3 Glascow coma 15 no focal deficits] Course Quality Measures none Orders Category Date Time Status EKG (ED ONLY) *Do not use* NOW Care 05/13/25 14:54 Completed EKG (ED Only) Stat Exams 05/13/25 14:54 Draft XR chest 1V Stat Exams 05/13/25 14:54 Completed B-Type Natriuretic Peptide Stat Lab 05/13/25 15:14 Completed CBC Stat Lab 05/13/25 15:14 Completed Comprehensive Metabolic Panel Stat Lab 05/13/25 15:14 Completed Drug Screen,Urine Stat Lab 05/13/25 15:26 Completed LDH (Lactate Dehydrogenase) Stat Lab 05/13/25 15:14 Completed Magnesium Stat Lab 05/13/25 15:14 Completed Partial Thromboplastin Time Stat Lab 05/13/25 15:14 Completed Prothrombin Time with INR Stat Lab 05/13/25 15:14 Completed Troponin I Stat Lab 05/13/25 15:14 Completed Urinalysis, C/S if Indicated Stat Lab 05/13/25 15:26 Completed Vital Signs Vital signs: Vital Signs Temperature 98.2 F 05/13/25 14:47 Pulse Rate 79 05/13/25 14:47 Respiratory Rate 18 05/13/25 14:47 Blood Pressure 146/87 H 05/13/25 14:47 Pulse Oximetry (%) 97 05/13/25 14:47 Oxygen Delivery Method Room Air 05/13/25 14:47 Discharge Plan Plan Patient Disposition: HOME (Self Care) Patient condition on transfer: Stable Prescriptions/Referrals Prescriptions/Med Rec: No Action atenolol 25 MG tablet 25 mg PO BID Qty: 60 losartan 50 mg tablet 100 mg PO DAILY Patient Comments: take 2 tabs by mouth once a day as directed atorvastatin 20 mg tablet 20 mg PO QDAY Patient Comments: TAKE 1 TABLET BY MOUTH AT BEDTIME metformin 500 mg tablet 500 mg PO DAILY Patient Comments: TAKE 1 TABLET BY MOUTH DAILY pantoprazole [Protonix] 40 mg Tablet,Delayed Release (Dr/Ec) 40 mg PO QDAY Qty: 90 0RF Rx Instructions: take 1 tablet by mouth daily for 3 months Referrals: Fannie Ross MD [Primary Care Provider] - In 1 week Problem List Clinical Impression: Weakness Patient/Caregiver Discharge Instructions Education Materials: ED Weakness (Uncertain Cause) Print Language: Maori Stand Alone Forms: Kim Award Info., Patient Portal Info Letter PA/TRANSPORTATION DISPATCH MANAGER Supervising Physician PA/TRANSPORTATION DISPATCH MANAGER Supervising Physician: Danis Michaud ENP [facility] Clinical Information Provided by patient Medical Records Reviewed [facility] Meds/Rx Considered, not Ordered None Labs/Rad/Tests considered, not Ordered None Chronic Illness/Social Conditions which may negatively complicate care or outcome(s)-explain: CHF/CAD/Cardiac illness EKG EKG Interpretation narrative: EKG performed at 1455 shows a ventricular rate of 81 QRS 109 QTc 407 this is A- fib. Lab Interpretation Lab(s) interpretation(s): CBC shows no acute leukocytosis anemia thrombocytopenia Coags within acceptable limits CMP shows a potassium of 3.2 no other significant electrolyte imbalances no renal impairment no transaminitis or T. bili elevation Troponin is negative BNP is negative Urine is negative for any acute finding requires emergent or immediate intervention UDS is negative Imaging Provider imaging interpretation(s): Chest x-ray is negative for any acute finding requires emergent or main intervention. Radiology reports / interpretation(s): There are no acute findings that requires emergent or immediate interventions this is the same complaint that the patient had several months ago. And there are no acute findings or emergent situations this time we will refer the patient back to the primary care provider for further evaluation. Diagnosis Differential diagnosis: ACS DE pneumonia anemia Dispositon Disposition: Discharge Home
[2025-05-13 15:42] LABS: Collection Type, Urine Clean Catch
[2025-05-13 15:43] LABS: Basophils # (Auto) 0.0 Thou/mm3 (0.0-0.2); Basophils % (Auto) 0 % (0-2.5); Eosinophils # (Auto) 0.0 Thou/mm3 (0.0-0.5); Eosinophils % (Auto) 1 % (0-10); Hematocrit 41.0 % (36.0-46.0); Hemoglobin 13.7 g/dL (12.0-16.0); Immature Granulocytes Auto 0.01 Thou/mm3 (0.00-0.00); Lymphocytes # (Auto) 1.7 Thou/mm3 (1.0-4.8); Lymphocytes % (Auto) 30 % (10-50); Mean Corpuscular HGB Conc 33.4 g/dl (31.0-37.0); Mean Corpuscular Hemoglobin 34.3 pg (25.0-35.0); Mean Corpuscular Volume 103 fL (80-100); Monocytes # (Auto) 0.4 Thou/mm3 (0.0-0.8); Monocytes % (Auto) 7 % (0-12); Neutrophils # (Auto) 3.6 Thou/mm3 (1.8-7.7); Neutrophils % (Auto) 62 % (37-80); Nucleated Red Blood Cell # 0.00 Thou/mm3 (0.00-0.00); Nucleated Red Blood Cell % 0 /100 WBC (0); Platelet Count 229 Thou/mm3 (140-440); RDW Standard Deviation 49.3 fL (36.4-46.3); Red Blood Count 4.00 Miln/mm3 (4.00-5.20); White Blood Count 5.8 Thou/mm3 (3.6-11.0)
[2025-05-13 15:50] LABS: Bilirubin,Urine Negative (Negative); Blood,Urine Negative (Negative); Clarity,Urine Clear (Clear/Hazy); Color,Urine Lt-Yellow (Lt Yel-Yel); Culture Indicated,Urine Not Indicated; Glucose, Urine Negative (Negative); Hyaline Casts,Urine < 1 /hpf (0-1); Ketones,Urine Negative (Negative); Leukocyte Esterase,Urine Negative (Negative); Nitrite,Urine Negative (Negative); PH,Urine 6.0 (5.0-7.0); Protein,Urine Negative (Neg - Trace); RBC,Urine 2 /hpf (0-3); Specific Gravity,Urine 1.010 (1.001-1.035); Squamous Epithelial Cell,Urine 1 /hpf (0-5); Urobilinogen,Urine Negative mg/dL (0.0-1.0); WBC,Urine 2 /hpf (0-5)
[2025-05-13 15:55] LABS: Amphetamine/Methamp Scrn,U Negative (Negative); Barbiturate Screen,Urine Negative (Negative); Benzodiazepines Screen,Urine Negative (Negative); Benzoylecgonine Screen, Ur Negative (Negative); Fentanyl Screen,Urine Negative (Negative); Opiate Screen,Urine Negative (Negative); THC Screen,Urine Negative (Negative)
[2025-05-13 16:02] LABS: B-Type Natriuretic Peptide 98 pg/mL (0-100)
[2025-05-13 16:03] LABS: INR 1.1 (0.9-1.3); Partial Thromboplastin Time 28.8 Seconds (22.0-36.0); Prothrombin Time 12.0 Seconds (9.0-12.2)
[2025-05-13 16:06] LABS: Alanine Aminotransferase 17 U/L (10-49); Albumin, Serum 4.6 gm/dL (3.4-4.8); Albumin/Globulin Ratio 1.8 (1.2-2.2); Alkaline Phosphatase 46 U/L (46-116); Anion Gap 9 (7-16); Aspartate Amino Transferase 41 U/L (0-34); BUN/Creatinine Ratio 15 Ratio (12-20); Bilirubin,Total 1.2 mg/dL (0.3-1.2); Blood Urea Nitrogen 16 mg/dL (9-23); Calcium 11.7 mg/dL (8.3-10.6); Calcium (Corrected) 11.7 mg/dL (8.5-10.1); Carbon Dioxide 30.6 mMol/L (20.0-31.0); Chloride 103 mMol/L (98-107); Creatinine (Component) 1.1 mg/dL (0.6-1.3); Estimated Creatinine Clearance 35.0 mL/min (>60); Globulin 2.6 gm/dL (2.3-3.5); Glucose 99 mg/dL (74-106); LDH (Lactate Dehydrogenase) 224 U/L (120-246); Magnesium 2.1 mg/dL (1.6-2.6); Osmolality,Calculated 286 (275-295); Potassium 3.2 mMol/L (3.4-5.1); Sodium 143 mMol/L (136-145); Total Protein 7.2 gm/dL (5.7-8.2); Troponin I < 0.020 ng/mL (0.0-0.045); eGFR 51 See Note
[2025-05-13 16:27] VITALS: BP 150/92; PULSE 80; RESP 18; TEMP 36.8; O2SAT 98
== END 2025-05-13 16:57 | disposition home or self-care (01) ==
PROVIDERS: Registered Nurse General Practice; Emergency Provider Emergency Medicine; PCP Internal Medicine
DX: R53.1 Weakness (principal); R06.02 Shortness of breath; I48.91 Unspecified atrial fibrillation
CPT/HCPCS: 36415; 71045; 80053; 80307; 81001; 83615; 83735; 83880; 84484; 85025; 85610; 85730; 93005; 99283

== ENCOUNTER → 2025-05-27 | Outpatient (CLI) | payer MEDICARE, MEDICAID, SELFPAY ==
[2025-05-27 08:51] LABS: Misc Send Out* See Sep Rpt
[2025-05-27 08:59] LABS: Misc Send Out* See Sep Rpt
[2025-05-27 09:32] LABS: Basophils # (Auto) 0.0 Thou/mm3 (0.0-0.2); Basophils % (Auto) 1 % (0-2.5); Eosinophils # (Auto) 0.1 Thou/mm3 (0.0-0.5); Eosinophils % (Auto) 3 % (0-10); Hematocrit 39.7 % (36.0-46.0); Hemoglobin 13.0 g/dL (12.0-16.0); Immature Granulocytes Auto 0.01 Thou/mm3 (0.00-0.00); Lymphocytes # (Auto) 1.3 Thou/mm3 (1.0-4.8); Lymphocytes % (Auto) 36 % (10-50); Mean Corpuscular HGB Conc 32.7 g/dl (31.0-37.0); Mean Corpuscular Hemoglobin 34.1 pg (25.0-35.0); Mean Corpuscular Volume 104 fL (80-100); Monocytes # (Auto) 0.2 Thou/mm3 (0.0-0.8); Monocytes % (Auto) 7 % (0-12); Neutrophils # (Auto) 1.9 Thou/mm3 (1.8-7.7); Neutrophils % (Auto) 54 % (37-80); Nucleated Red Blood Cell # 0.00 Thou/mm3 (0.00-0.00); Nucleated Red Blood Cell % 0 /100 WBC (0); Platelet Count 192 Thou/mm3 (140-440); RDW Standard Deviation 50.4 fL (36.4-46.3); Red Blood Count 3.81 Miln/mm3 (4.00-5.20); White Blood Count 3.5 Thou/mm3 (3.6-11.0)
[2025-05-27 09:49] LABS: Parathyroid Hormone Intact 99.3 pg/ml (18.5-88.0)
[2025-05-27 09:54] LABS: Vitamin B12 336 pg/mL (211-911); Vitamin D 25 Hydroxy Total 30.3 ng/mL (7.3-40.2)
[2025-05-27 09:57] LABS: Alanine Aminotransferase 17 U/L (10-49); Albumin, Serum 4.4 gm/dL (3.4-4.8); Albumin/Globulin Ratio 1.8 (1.2-2.2); Alkaline Phosphatase 45 U/L (46-116); Anion Gap 10 (7-16); Aspartate Amino Transferase 30 U/L (0-34); BUN/Creatinine Ratio 13 Ratio (12-20); Bilirubin,Total 1.0 mg/dL (0.3-1.2); Blood Urea Nitrogen 13 mg/dL (9-23); Calcium 10.8 mg/dL (8.3-10.6); Calcium (Corrected) 10.8 mg/dL (8.5-10.1); Carbon Dioxide 27.7 mMol/L (20.0-31.0); Cardiac Risk Estimate 2.2 RATIO (3.7-5.6); Chloride 105 mMol/L (98-107); Cholesterol 140 mg/dL (132-200); Creatinine (Component) 1.0 mg/dL (0.6-1.3); Free T3 2.5 pg/mL (2.3-4.2); Free T4 (Free Thyroxine) 1.36 ng/dL (0.89-1.76); Globulin 2.4 gm/dL (2.3-3.5); Glucose 115 mg/dL (74-106); HDL Cholesterol 63 mg/dL (40-60); LDL Cholesterol,Calculated 52 mg/dL (0-130); Osmolality,Calculated 286 (275-295); Phosphorous 3.7 mg/dL (2.4-5.1); Potassium 3.7 mMol/L (3.4-5.1); Sodium 143 mMol/L (136-145); Thyroid Stimulating Hormone 2.40 uIU/mL (0.55-4.78); Total Protein 6.8 gm/dL (5.7-8.2); Triglycerides 126 mg/dL (30-150); eGFR 57 See Note
[2025-06-04 22:06] LABS: Albumin 4.3 g/dL (3.8-4.8); Alpha-1-Globulin 0.2 g/dL (0.2-0.3); Alpha-2-Globulin 0.7 g/dL (0.5-0.9); Beta-1-Globulin 0.4 g/dL (0.4-0.6); Beta-2-globulin 0.4 g/dL (0.2-0.5); Gamma Globulin 1.1 g/dL (0.8-1.7)
[2025-06-05 06:32] LABS: Protein, total, serum 7.1 g/dL (6.1-8.1); TSI, Thyroid Stimulating Ig* <89 % baseline (<140); Thyroid Peroxidase Antibodies* <1 IU/mL (<9); Vitamin D,1,25 (OH)2,Total 10 pg/mL (18-72); Vitamin D2, 1,25 (OH)2 10 pg/mL; Vitamin D3, 1,25 (OH)2 <8 pg/mL; Zinc, Plasma* 76 mcg/dL (60-130)
== END | disposition home or self-care (01) ==
PROVIDERS: PCP Internal Medicine; Referring Provider Internal Medicine Endocrinology, Diabetes & Metabolism; Visit Provider Internal Medicine Endocrinology, Diabetes & Metabolism
DX: E03.9 Hypothyroidism, unspecified (principal); E04.2 Nontoxic multinodular goiter; E83.52 Hypercalcemia
CPT/HCPCS: 36415; 80053; 80061; 82306; 82340; 82570; 82607; 82652; 83519; 83970; 84100; 84155; 84165; 84439; 84443; 84445; 84481; 84630; 85025; 86376

== ENCOUNTER → 2025-05-29 | Outpatient (CLI) | payer MEDICARE, MEDICAID, SELFPAY | END | disposition home or self-care (01) | LOC: SLDO 07:41 | PROVIDERS: PCP Internal Medicine Endocrinology, Diabetes & Metabolism; Referring Provider Internal Medicine Endocrinology, Diabetes & Metabolism; Visit Provider Internal Medicine Endocrinology, Diabetes & Metabolism | DX: E03.9 Hypothyroidism, unspecified (principal); E04.2 Nontoxic multinodular goiter; E83.52 Hypercalcemia | CPT/HCPCS: 86335 ==

== ENCOUNTER → 2025-06-15 | Outpatient (CLI) | payer MEDICARE, MEDICAID, SELFPAY ==
--- NOTE | 2025-06-15 10:59 | XR_ITS ---
Examination: PA lateral chest 2 views TECHNIQUE: Upright PA lateral chest 2 views Date and time: June 15, 2025, 1125 hours INDICATIONS: Coughing shortness of breath beginning 5 days ago FINDINGS: Mild prominence left ventricle Ectatic thoracic aorta. No pneumonia or pulmonary edema. Prominent osteopenia IMPRESSION: No pneumonia or pulmonary edema
== END | disposition home or self-care (01) ==
LOC: CDIM 10:50
PROVIDERS: PCP Internal Medicine; Referring Provider Internal Medicine; Visit Provider Internal Medicine
DX: R06.02 Shortness of breath (principal); R05.9 Cough, unspecified
CPT/HCPCS: 71046

== ENCOUNTER 2025-06-19 08:05 | Outpatient (RCR) | payer MEDICARE, MEDICAID, SELFPAY ==
--- NOTE | 2025-06-19 09:00 | XR_ITS ---
Examination: Nuclear medicine parathyroid scan Date and time: June 19, 2025, 1413 hours INDICATIONS: Difficulty swallowing food and medications 5 years, history multiple thyroid nodules on thyroid sonogram December 16, 2024 TECHNIQUE AND FINDINGS: Intravenous ministration 24.8 mCi technetium 90 9M sestamibi Anterior pinhole images obtained 2 4 hours Thyroid uptake, salivary gland uptake No abnormal parathyroid uptake noted IMPRESSION: No abnormal parathyroid uptake noted
== END 2025-06-24 23:59 | disposition home or self-care (01) ==
LOC: SNUC 08:05
PROVIDERS: PCP Internal Medicine
DX: R13.19 Other dysphagia (principal)
CPT/HCPCS: 78070; A9500

== ENCOUNTER → 2025-07-06 | Outpatient (CLI) | payer MEDICARE, MEDICAID, SELFPAY ==
--- NOTE | 2025-07-06 | XR_ITS ---
Examination: Bone densitometry Date and time of exam: July 06, 2025, 1440 hours INDICATION: Menopause age 47 Technique: Forearm and hip total bone mineralization values of an calculated. Peak reference and age match control results have been displayed. Findings: Forearm total bone mineralization is . 0.391 Gm/cm2. This is 3.4 standard deviations below peak reference. This is 0.2 standard deviations below age-matched controls. Hip total bone mineralization is .816 gm/cm2 This is 1.1 standard deviations below peak reference. This is 0.9 standard deviations below age-matched controls Impression: There is osteoporosis based on forearm measurements. There is osteopenia based on hip measurements Forearm mineralization is decreased 0.2% compared with May 15, 2024 Hip mineralization is increased 1.5% compared to May 15, 2024
== END | disposition home or self-care (01) ==
LOC: CDIM 13:35
DX: M85.89 Other specified disorders of bone density and structure, multiple sites (principal); M81.0 Age-related osteoporosis without current pathological fracture
CPT/HCPCS: 77080

== ENCOUNTER → 2025-07-27 | Outpatient (CLI) | payer MEDICARE, MEDICAID, SELFPAY ==
[2025-07-27 08:24] LABS: Collection Type, Urine Clean Catch
[2025-07-27 08:42] LABS: Basophils # (Auto) 0.0 Thou/mm3 (0.0-0.2); Basophils % (Auto) 1 % (0-2.5); Eosinophils # (Auto) 0.1 Thou/mm3 (0.0-0.5); Eosinophils % (Auto) 3 % (0-10); Hematocrit 40.7 % (36.0-46.0); Hemoglobin 13.1 g/dL (12.0-16.0); Immature Granulocytes Auto 0.01 Thou/mm3 (0.00-0.00); Lymphocytes # (Auto) 1.5 Thou/mm3 (1.0-4.8); Lymphocytes % (Auto) 36 % (10-50); Mean Corpuscular HGB Conc 32.2 g/dl (31.0-37.0); Mean Corpuscular Hemoglobin 33.5 pg (25.0-35.0); Mean Corpuscular Volume 104 fL (80-100); Monocytes # (Auto) 0.3 Thou/mm3 (0.0-0.8); Monocytes % (Auto) 8 % (0-12); Neutrophils # (Auto) 2.2 Thou/mm3 (1.8-7.7); Neutrophils % (Auto) 52 % (37-80); Nucleated Red Blood Cell # 0.00 Thou/mm3 (0.00-0.00); Nucleated Red Blood Cell % 0 /100 WBC (0); Platelet Count 214 Thou/mm3 (140-440); RDW Standard Deviation 50.4 fL (36.4-46.3); Red Blood Count 3.91 Miln/mm3 (4.00-5.20); White Blood Count 4.2 Thou/mm3 (3.6-11.0)
[2025-07-27 08:56] LABS: Bilirubin,Urine Negative (Negative); Blood,Urine Negative (Negative); Clarity,Urine Clear (Clear/Hazy); Color,Urine Yellow (Lt Yel-Yel); Glucose, Urine Negative (Negative); Hyaline Casts,Urine 1 /hpf (0-1); Ketones,Urine Negative (Negative); Leukocyte Esterase,Urine Positive (Negative); Nitrite,Urine Negative (Negative); PH,Urine 5.0 (5.0-7.0); Protein,Urine Negative (Neg - Trace); RBC,Urine 1 /hpf (0-3); Specific Gravity,Urine 1.022 (1.001-1.035); Squamous Epithelial Cell,Urine 6 /hpf (0-5); Urobilinogen,Urine Negative mg/dL (0.0-1.0); WBC,Urine 6 /hpf (0-5)
[2025-07-27 08:58] LABS: Alanine Aminotransferase 22 U/L (10-49); Albumin, Serum 4.8 gm/dL (3.4-4.8); Albumin/Globulin Ratio 2.1 (1.2-2.2); Alkaline Phosphatase 48 U/L (46-116); Anion Gap 8 (7-16); Aspartate Amino Transferase 39 U/L (0-34); BUN/Creatinine Ratio 17 Ratio (12-20); Bilirubin,Total 1.0 mg/dL (0.3-1.2); Blood Urea Nitrogen 19 mg/dL (9-23); Calcium 10.7 mg/dL (8.3-10.6); Calcium (Corrected) 10.7 mg/dL (8.5-10.1); Carbon Dioxide 32.2 mMol/L (20.0-31.0); Cardiac Risk Estimate 2.9 RATIO (3.7-5.6); Chloride 104 mMol/L (98-107); Cholesterol 168 mg/dL (132-200); Creatinine (Component) 1.1 mg/dL (0.6-1.3); Globulin 2.3 gm/dL (2.3-3.5); Glucose 123 mg/dL (74-106); HDL Cholesterol 58 mg/dL (40-60); LDL Cholesterol,Calculated 83 mg/dL (0-130); Osmolality,Calculated 290 (275-295); Potassium 4.0 mMol/L (3.4-5.1); Sodium 144 mMol/L (136-145); Thyroid Stimulating Hormone 2.63 uIU/mL (0.55-4.78); Total Protein 7.1 gm/dL (5.7-8.2); Triglycerides 137 mg/dL (30-150); eGFR 51 See Note
[2025-07-27 09:27] LABS: Glucose Estimated Average 146 mg/dL (80-131); Hemoglobin A1C 6.7 % Hgb (4.8-6.0)
[2025-07-27 09:37] LABS: Creatinine MALB Rnd Ur 146 mg/dL (30-125); Microalbumin Creat Ratio 5 mg/gCrea (<30); Microalbumin, Random Urine 7 mg/L (0-300)
== END | disposition home or self-care (01) ==
LOC: COPL 07:51
PROVIDERS: PCP Internal Medicine; Referring Provider Internal Medicine; Visit Provider Internal Medicine
DX: E11.9 Type 2 diabetes mellitus without complications (principal); I10 Essential (primary) hypertension; E78.5 Hyperlipidemia, unspecified; N17.9 Acute kidney failure, unspecified
CPT/HCPCS: 36415; 80053; 80061; 81001; 82043; 82570; 83036; 84443; 85025

== ENCOUNTER → 2025-09-01 | Outpatient (CLI) | payer MEDICARE, MEDICAID, SELFPAY ==
[2025-09-01 08:45] LABS: Parathyroid Hormone Intact 116.2 pg/ml (18.5-88.0)
[2025-09-01 08:46] LABS: Calcium 10.2 mg/dL (8.3-10.6); Free T4 (Free Thyroxine) 1.27 ng/dL (0.89-1.76); Thyroid Stimulating Hormone 4.00 uIU/mL (0.55-4.78)
[2025-09-01 09:41] LABS: INR 1.0 (0.9-1.3); Prothrombin Time 11.0 Seconds (9.0-12.2)
== END | disposition home or self-care (01) ==
PROVIDERS: PCP Internal Medicine; Referring Provider Internal Medicine Endocrinology, Diabetes & Metabolism; Visit Provider Internal Medicine Endocrinology, Diabetes & Metabolism
DX: E03.9 Hypothyroidism, unspecified (principal); E04.2 Nontoxic multinodular goiter; E83.52 Hypercalcemia
CPT/HCPCS: 36415; 82310; 83970; 84439; 84443; 85610